=== PATIENT | female | born 1935 | race Caucasian/White ===

== ENCOUNTER 2019-03-03 12:35 | Emergency (ER) | payer MEDICARE, OTHER ==
[2019-03-03] MEDS ORDERED: LIDOCAINE 5% (700 MG) TRANSDERMAL ADH..PATCH TP ONE (13:06)
[2019-03-03] MEDS ORDERED: TRAMADOL HCL 50 MG TABLET PO ONE (13:06)
--- NOTE | 2019-03-03 13:40 | ER Document Report ---
HPI - HPI Patient complains to provider of: Low back pain Time Seen by Provider: 03/03/19 12:47 Onset: Other - 4 days Onset/Duration: Waxing and waning Quality of pain: Sharp Pain Level: 4 Context: Patient complains of pain to the left lower back area that is been off and on for the past 4 days. Patient states that she will occasionally get pain in this area since a chiropractic adjustment that was performed in September of this year. Patient denies any urinary symptoms. Patient denies any radiculopathy. Patient does complain of some paresthesia to the plantar surface of the arches of bilateral feet but nowhere else. Patient denies any fever. Patient denies any recent trauma. Patient is here [place] from [place] and family are wanting to make plans for return travel home. Patient reports that when she ambulates the pain will suddenly increase when she puts weight to the left leg causing her gait to be off to help minimize pain. Associated Symptoms: Other - Low back pain Exacerbated by: Movement Relieved by: Denies Similar symptoms previously: No Recently seen / treated by doctor: No - ROS ROS below otherwise negative: Yes Systems Reviewed and Negative: Yes All other systems reviewed and negative - CONSTITUTIONAL Constitutional: DENIES: Fever - NEURO Neurology: DENIES: Weakness - GASTROINTESTINAL Gastrointestinal: DENIES: Abdominal Pain, Nausea, Patient vomiting - URINARY Urinary: DENIES: Dysuria - MUSCULOSKELETAL Musculoskeletal: REPORTS: Back Pain. DENIES: Extremity pain - DERM Skin Color: Normal Skin Problems: None Past Medical History - General Information source: Patient - Social History Smoking Status: Never Smoker Frequency of alcohol use: None Drug Abuse: None Family History: Reviewed & Not Pertinent Patient has suicidal ideation: No Patient has homicidal ideation: No - Past Medical History Cardiac Medical History: Reports: Hx Atrial Fibrillation, Hx Hypercholesterolemia, Hx Hypertension Renal/ Medical History: Denies: Hx Peritoneal Dialysis Malignancy Medical History: Reports: Hx Skin Cancer Past Surgical History: Reports: Hx Orthopedic Surgery Vertical Provider Document - CONSTITUTIONAL Agree With Documented VS: Yes Exam Limitations: No Limitations General Appearance: WD/WN, No Apparent Distress Notes: PHYSICAL EXAMINATION: GENERAL: Well-appearing, well-nourished and in no acute distress. HEAD: Atraumatic, normocephalic. EYES: sclera clear, anicteric, conjunctiva are normal. ENT: nares patent, Moist mucous membranes. NECK: Normal range of motion, supple LUNGS: respirations unlabored HEART: Regular rate and rhythm without murmurs EXTREMITIES: Normal range of motion, no pitting or edema. No cyanosis. Gait normal, pt ambulates without difficulty BACK: Left lower lumbar paraspinal tenderness, no midline tenderness, no deformities or step-offs. No CVA tenderness. NEUROLOGICAL: Cranial nerves grossly intact. Normal speech. No saddle anesthesia. PSYCH: Normal mood, normal affect. SKIN: Warm, Dry, normal turgor, no rashes or lesions noted. - INFECTION CONTROL TRAVEL OUTSIDE OF THE [place] IN LAST 30 DAYS: No Course - Re-evaluation Re-evalutation: 03/03/19 16:07 The patient presents with low back pain without signs of spinal cord compression, cauda equina syndrome, infection, aneurysm, or other serious etiology. The patient is neurologically intact. Given the extremely risk of these diagnoses further testing and evaluation for these possibilities does not appear to be indicated at this time. Patient has been instructed to return if the symptoms worsen or change in any way. Patient was given a copy of her radiology reports as well as her studies copied to a disc. Patient advised of upper limit of normal size of her abdominal aorta as well as incidental renal cysts. - Vital Signs Vital signs: Temp Pulse Resp BP Pulse Ox 97.9 F 90 16 126/91 H 95 03/03/19 12:43 03/03/19 12:43 03/03/19 12:43 03/03/19 12:43 03/03/19 12:43 - Diagnostic Test Radiology reviewed: Image reviewed, Reports reviewed Discharge - Discharge Clinical Impression: Low back pain Qualifiers: Chronicity: acute Back pain laterality: left Sciatica presence: without sciatica Qualified Code(s): M54.5 - Low back pain Condition: Stable Disposition: HOME, SELF-CARE Instructions: Ice Packs ([facility]), Low Back Pain ([facility]), Ultram ([facility]) Additional Instructions: Return immediately for any new or worsening symptoms Followup with your primary care provider, call tomorrow to make a followup appointment Prescriptions: Lidocaine [Lidoderm 5% (700 mg) Transdermal Patch] 1 patch TP DAILY PRN #10 adh..patch PRN Reason: Tramadol HCl [Ultram 50 mg Tablet] 50 mg PO ASDIR PRN #20 tablet PRN Reason:
--- NOTE | 2019-03-03 13:43 | RADIOLOGY REPORT (SQ) ---
EXAM DESCRIPTION: L SPINE WHOLE COMPLETED DATE/TIME: 03/03/2019 1:32 pm REASON FOR STUDY: L lower back pain COMPARISON: None. NUMBER OF VIEWS: Five views including obliques. TECHNIQUE: AP, lateral, oblique, and sacral radiographic images acquired of the lumbar spine. LIMITATIONS: None. FINDINGS: MINERALIZATION: Osteopenia. SEGMENTATION: Normal. No transitional anatomy. ALIGNMENT: Normal. VERTEBRAE: Mild superior endplate height loss at T12 and L1. DISCS: Multilevel degenerative changes with disc height loss throughout the lumbar spine and associat ed endplate osteophytosis. POSTERIOR ELEMENTS: No definite pars defect. Mild lower lumbar facet arthropathy. HARDWARE: None in the spine. PARASPINAL SOFT TISSUES: Aortic atherosclerosis with likely mild infrarenal abdominal aortic aneurysm measuring approximately 3 cm. PELVIS: Intact as visualized. No fractures or worrisome bone lesions. SI joints intact. OTHER: No other significant finding. IMPRESSION: 1. Mild superior endplate height loss at T12 and L1, chronicity uncertain. 2. Osteopenia with multilevel degenerative disc disease of the lumbar spine. 3. Aortic atherosclerosis with likely infrarenal abdominal aortic aneurysm measuring approximately 3 cm. Cross-sectional imaging or ultrasound would be needed for confirmation. TECHNICAL DOCUMENTATION: JOB ID: [id number] [employer]- All Rights Reserved Reading location - IP/workstation name: [email or web address]
--- NOTE | 2019-03-03 16:00 | RADIOLOGY REPORT (SQ) ---
EXAM DESCRIPTION: U/S RETROPERITON (RENAL/AORTA) COMPLETED DATE/TIME: 03/03/2019 3:47 pm REASON FOR STUDY: back pain, eval ? Aneurysm COMPARISON: None. TECHNIQUE: Dynamic and static grayscale images acquired of the kidneys and bladder and recorded on P ACS. Additional selected color Doppler and spectral images recorded. LIMITATIONS: None. FINDINGS: RIGHT KIDNEY: Normal in size measuring 9.5 cm. No solid or suspicious masses. No hydronep hrosis. No calcifications. LEFT KIDNEY: Normal in size measuring 11.0 cm. Probable cyst measuring up to 2.7 cm in the interpol ar region. No solid or suspicious masses. No hydronephrosis. No calcifications. BLADDER: Decompressed urinary bladder. OTHER FINDINGS: Aorta measures up to 2 point 8 cm proximally. IMPRESSION: 1. Proximal aorta measures up to 2.8 cm proximally. Follow-up as below. 2. No hydronephrosis. COMMENT: AAA Size: Follow-up Recommendation 2.6-2.9 cm Every 5 years* *Based upon the Society for Vascular Surgery Guidelines: J Vasc Surg. 2009 Jun;50(4 Suppl):S2-49 *For aortas of maximum diameter of 2.6-2.9 cm meeting the criteria for AAA (?1.5 x proximal normal se gment) TECHNICAL DOCUMENTATION: JOB ID: [id number] [employer]- All Rights Reserved Reading location - IP/workstation name: [email or web address]
[2019-03-03 16:18] VITALS: BP 126/50
== END 2019-03-03 16:18 | disposition home or self-care (01) ==
LOC: ER 12:35
DX: M54.5 Low back pain (principal); R20.2 Paresthesia of skin; I10 Essential (primary) hypertension; Q61.02 Congenital multiple renal cysts
CPT/HCPCS: 99284; 72110; 76770; A9270